=== PATIENT | male | born 1940 | race Caucasian/White ===

== ENCOUNTER 2017-09-23 08:43 | Emergency (ER) | payer MEDICARE, OTHER ==
[~2017-09-23] VITALS: Ht 172.7 cm; Wt 121.2 kg
[~2017-09-23 08:43] MED LIST: AMIO200T57 PO; ATOR40TA3 PO; Atorvastatin Calcium PO; BENA20TA10 PO; CELE-193 PO; CLOP75TA35 PO; FLO0.4C PO; METO50TA16 PO
[2017-09-23] MEDS ORDERED: oxyCODONE/APAP 10/325mg tablet PO ONE ×2 (09:05→09:55)
[2017-09-23 09:18] LABS: BASOPHILS % (AUTO) 0.2 % (0-1); EOSINOPHILS % (AUTO) 0.2 % (0-6); HEMATOCRIT 45.6 % (42.0-52.0); HEMOGLOBIN 15.2 g/dl (14.0-17.9); LYMPHOCYTES # (AUTO) 0.9 X10'3 (1.1-4.8); LYMPHOCYTES % (AUTO) 7.4 % (21-51); MEAN CORPUSCULAR HEMOGLOBIN 32.5 PG (27.0-31.0); MEAN CORPUSCULAR HGB CONC 33.3 % (33.0-36.5); MEAN CORPUSCULAR VOLUME 97.6 FL (78-98); MEAN PLATELET VOLUME 8.1 FL (7.4-10.4); MONOCYTES # (AUTO) 1.3 X10'3 (0-0.9); MONOCYTES % (AUTO) 10.8 % (2-12); NEUTROPHILS # (AUTO) 9.6 X10'3 (1.8-7.7); NEUTROPHILS % (AUTO) 81.4 % (42-75); PLATELET COUNT 398 X10'3 (140-440); RED BLOOD COUNT 4.67 X10'6 (4.70-6.10); RED CELL DISTRIBUTION WIDTH 13.6 % (11.5-14.5); WHITE BLOOD COUNT 11.8 X10'3 (4.5-11.0)
[2017-09-23 09:32] LABS: ALANINE AMINOTRANSFERASE 16 U/L (12-78); ALBUMIN 2.9 G/DL (3.4-5.0); ALBUMIN/GLOBULIN RATIO 0.6 (1.1-1.5); ALKALINE PHOSPHATASE 86 IU/L (46-116); ANION GAP 8 (8-16); ASPARTATE AMINO TRANSFERASE 18 U/L (10-37); BILIRUBIN,TOTAL 0.5 MG/DL (0.1-1.0); BLOOD UREA NITROGEN 17 MG/DL (7-18); BUN/CREATININE RATIO 12.1 (5.4-32.0); CALCIUM 9.4 MG/DL (8.5-10.1); CHLORIDE 98 MMOL/L (99-107); CREATININE 1.41 MG/DL (0.60-1.10); GLUCOSE 111 MG/DL (70-104); POTASSIUM 5.1 MMOL/L (3.5-5.1); SODIUM 135 MMOL/L (135-145); TOTAL CARBON DIOXIDE 29.3 MMOL/L (24-32); TOTAL PROTEIN 7.9 G/DL (6.4-8.2); eGFR 49 ML/MIN
[2017-09-23] MEDS ORDERED: OXYC-145 PO (11:05)
[2017-09-23 11:15] VITALS: BP 146/70
== END 2017-09-23 11:18 | disposition home or self-care (01) ==
LOC: ER 08:44
DX: I73.9 Peripheral vascular disease, unspecified (principal); I11.0 Hypertensive heart disease with heart failure; I50.9 Heart failure, unspecified; J44.9 Chronic obstructive pulmonary disease, unspecified; G89.29 Other chronic pain; Z79.899 Other long term (current) drug therapy; Z95.0 Presence of cardiac pacemaker
CPT/HCPCS: 36415; 71045; 80053; 83880; 85025; 93005; 93922; 93925; 93970; 99285

== ENCOUNTER 2017-09-25 09:27 | Emergency (ER) | payer MEDICARE, OTHER ==
[~2017-09-25] VITALS: Ht 172.7 cm; Wt 95.9 kg
[~2017-09-25 09:27] MED LIST changes: +OXYC-145 PO
[2017-09-25 09:40] VITALS: BP 161/91
[2017-09-25] MEDS ORDERED: OXYC-150 PO (11:38)
[2017-09-25] MEDS ORDERED: oxyCODONE/APAP 10/325mg tablet PO ONE (11:40)
== END 2017-09-25 12:01 | disposition home or self-care (01) ==
LOC: ER 09:27
DX: M79.605 Pain in left leg (principal); R20.0 Anesthesia of skin; I11.0 Hypertensive heart disease with heart failure; I50.9 Heart failure, unspecified; J44.9 Chronic obstructive pulmonary disease, unspecified; G89.29 Other chronic pain; Z76.0 Encounter for issue of repeat prescription; Z98.61 Coronary angioplasty status; Z95.0 Presence of cardiac pacemaker; Z79.899 Other long term (current) drug therapy
CPT/HCPCS: 99283

== ENCOUNTER 2018-01-05 12:40 | Emergency (ER) | payer MEDICARE, OTHER ==
[~2018-01-05] VITALS: Ht 172.7 cm; Wt 96.5 kg
[~2018-01-05 12:40] MED LIST changes: +AMIO200T40 PO; -AMIO200T57 PO; +OXYC-150 PO
[2018-01-05] MEDS ORDERED: ketorolac trometh. 30mg/ml inj. IM ONE (15:05)
[2018-01-05 15:18] VITALS: BP 149/49
== END 2018-01-05 15:21 | disposition home or self-care (01) ==
LOC: ER 12:41
DX: S46.912A Strain of unspecified muscle, fascia and tendon at shoulder and upper arm level, left arm, initial encounter (principal); S20.212A Contusion of left front wall of thorax, initial encounter; I11.0 Hypertensive heart disease with heart failure; I50.9 Heart failure, unspecified; J44.9 Chronic obstructive pulmonary disease, unspecified; G89.29 Other chronic pain; Z95.5 Presence of coronary angioplasty implant and graft; Z95.0 Presence of cardiac pacemaker; Z79.899 Other long term (current) drug therapy; W19.XXXA Unspecified fall, initial encounter; Y93.89 Activity, other specified; Y92.89 Other specified places as the place of occurrence of the external cause; Y99.9 Unspecified external cause status
CPT/HCPCS: 71100; 73060; 96372; 99284; J1885

== ENCOUNTER 2018-01-19 14:47 | Emergency (ER) | payer MEDICARE, OTHER ==
[~2018-01-19] VITALS: Ht 172.7 cm; Wt 100.0 kg
[2018-01-19 15:07] VITALS: BP 168/92
[2018-01-19] MEDS ORDERED: normal saline 1000ML IV soln IV ONE (15:10)
[2018-01-19] MEDS ORDERED: morphine 4 MG/ML inj SYRINge IV ONE (15:10)
[2018-01-19] MEDS ORDERED: TETanus/Pertussis (Acell)/Diphther VAC/PF (Tdap-Adult) 0.5ml syringe IM ONE (15:25)
[2018-01-19 15:27] LABS: BASOPHILS # (AUTO) 0.1 X10'3 (0-0.2); BASOPHILS % (AUTO) 0.4 % (0-1); EOSINOPHILS # (AUTO) 0.2 X10'3 (0-0.9); EOSINOPHILS % (AUTO) 1.1 % (0-6); HEMATOCRIT 46.8 % (42.0-52.0); HEMOGLOBIN 15.4 g/dl (14.0-17.9); LYMPHOCYTES # (AUTO) 1.9 X10'3 (1.1-4.8); LYMPHOCYTES % (AUTO) 14.1 % (21-51); MEAN CORPUSCULAR HEMOGLOBIN 31.7 PG (27.0-31.0); MEAN CORPUSCULAR HGB CONC 32.9 % (33.0-36.5); MEAN CORPUSCULAR VOLUME 96.2 FL (78-98); MEAN PLATELET VOLUME 8.7 FL (7.4-10.4); MONOCYTES # (AUTO) 1.2 X10'3 (0-0.9); NEUTROPHILS % (AUTO) 75.4 % (42-75); PLATELET COUNT 356 X10'3 (140-440); RED BLOOD COUNT 4.87 X10'6 (4.70-6.10); RED CELL DISTRIBUTION WIDTH 14.4 % (11.5-14.5); WHITE BLOOD COUNT 13.3 X10'3 (4.5-11.0)
[2018-01-19] MEDS ORDERED: fentaNYL/PF 50MCG/1 ML 2ML syringe IV ONE ×3 (15:35→17:40)
[2018-01-19 15:39] LABS: INR 0.9 INR; PROTHROMBIN TIME 9.8 SECONDS (9.0-12.0)
[2018-01-19 15:42] LABS: ALANINE AMINOTRANSFERASE 14 U/L (12-78); ALKALINE PHOSPHATASE 102 IU/L (46-116); ANION GAP 13 (8-16); ASPARTATE AMINO TRANSFERASE 15 U/L (10-37); BILIRUBIN,TOTAL 0.4 MG/DL (0.1-1.0); BLOOD UREA NITROGEN 24 MG/DL (7-18); BUN/CREATININE RATIO 15.9 (5.4-32.0); CHLORIDE 99 MMOL/L (99-107); CREATINE KINASE 98 U/L (39-308); CREATININE 1.51 MG/DL (0.60-1.10); GLUCOSE 106 MG/DL (70-104); POTASSIUM 4.4 MMOL/L (3.5-5.1); SODIUM 135 MMOL/L (135-145); TOTAL CARBON DIOXIDE 23.5 MMOL/L (24-32); eGFR 45 ML/MIN
[2018-01-19] MEDS ORDERED: LIDOcaine 2% 10ml TOPICAL JELLY (Urojet) MM ONE (15:50)
== END 2018-01-19 18:45 | disposition short-term general hospital (02) ==
LOC: ER 14:47
DX: T23.201A Burn of second degree of right hand, unspecified site, initial encounter (principal); T23.202A Burn of second degree of left hand, unspecified site, initial encounter; I25.10 Atherosclerotic heart disease of native coronary artery without angina pectoris; I13.0 Hypertensive heart and chronic kidney disease with heart failure and stage 1 through stage 4 chronic kidney disease, or unspecified chronic kidney disease; N18.9 Chronic kidney disease, unspecified; I50.9 Heart failure, unspecified; J44.9 Chronic obstructive pulmonary disease, unspecified; I25.2 Old myocardial infarction; G89.29 Other chronic pain; Z95.1 Presence of aortocoronary bypass graft; Z95.0 Presence of cardiac pacemaker; Z87.891 Personal history of nicotine dependence; Z79.899 Other long term (current) drug therapy; W86.8XXA Exposure to other electric current, initial encounter; Y93.89 Activity, other specified; Y92.89 Other specified places as the place of occurrence of the external cause; Y99.9 Unspecified external cause status
CPT/HCPCS: 36415; 71045; 80053; 82550; 83735; 84484; 85025; 85610; 90471; 90715; 93005; 96374; 96375; 96376; 99291; J2270; J3010

== ENCOUNTER 2018-06-03 07:19 | Observation (INO) | payer MEDICARE, OTHER ==
[2018-05-31 11:44] LABS: BASOPHILS % (AUTO) 0.6 % (0-1); EOSINOPHILS # (AUTO) 0.1 X10'3 (0-0.9); EOSINOPHILS % (AUTO) 1.7 % (0-6); LYMPHOCYTES # (AUTO) 1.9 X10'3 (1.1-4.8); LYMPHOCYTES % (AUTO) 22.7 % (21-51); MEAN CORPUSCULAR HEMOGLOBIN 32.6 PG (27.0-31.0); MEAN CORPUSCULAR HGB CONC 33.4 g/dL (33.0-36.5); MEAN CORPUSCULAR VOLUME 97.6 FL (78-98); MEAN PLATELET VOLUME 9.3 FL (7.4-10.4); MONOCYTES # (AUTO) 0.9 X10'3 (0-0.9); MONOCYTES % (AUTO) 11.4 % (2-12); NEUTROPHILS # (AUTO) 5.2 X10'3 (1.8-7.7); NEUTROPHILS % (AUTO) 63.6 % (42-75); PRE OP HEMATOCRIT 44.1 % (42.0-52.0); PRE OP HEMOGLOBIN 14.7 g/dL (14.0-17.9); PRE OP PLATELET COUNT 279 X10'3 (140-440); RED BLOOD COUNT 4.52 X10'6 (4.70-6.10); RED CELL DISTRIBUTION WIDTH 13.6 % (11.5-14.5)
[2018-05-31 11:49] LABS: CLARITY,URINE CLEAR (Clear); COLOR,URINE YELLOW (Yellow); GLUCOSE, URINE NEGATIVE (Neg); KETONES,URINE NEGATIVE (Neg); LEUKOCYTE ESTERASE ,URINE NEGATIVE (Neg); NITRITES, URINE NEGATIVE (Neg); OCCULT BLOOD,URINE NEGATIVE (Neg); PROTEIN,URINE NEGATIVE (Neg); UA COLLECTION TYPE CLN CATCH MIDSTREAM; UROBILINOGEN,URINE 0.2 E.U/dL (0.2-1.0)
[2018-05-31 12:10] LABS: ALBUMIN 3.5 G/DL (3.4-5.0); ALKALINE PHOSPHATASE 95 IU/L (46-116); BLOOD UREA NITROGEN 22 MG/DL (7-18); BUN/CREATININE RATIO 14.9 (5.4-32.0); CALCIUM 8.9 MG/DL (8.5-10.1); CHLORIDE 103 MMOL/L (99-107); CREATININE 1.48 MG/DL (0.60-1.10); PRE OP ALT 15 U/L (30-65); PRE OP ANION GAP 8 (8-16); PRE OP AST 15 U/L (10-37); PRE OP BILIRUB, TOTAL 0.3 MG/DL (0.0-1.0); PRE OP GLUCOSE 88 MG/DL (70-104); PRE OP POTASSIUM 4.2 MMOL/L (3.4-5.1); PRE OP SODIUM 139 MMOL/L (135-145); eGFR 46 ML/MIN
[2018-05-31 12:19] LABS: INR 0.9 INR; PRE OP PARTIAL THROMB. TIME 28 SECONDS (22-35); PROTHROMBIN TIME 9.6 SECONDS (9.0-12.0)
[2018-06-03] VITALS (17 sets, daily range): BP systolic 118–172; BP diastolic 48–77
[~2018-06-03] VITALS: Ht 172.7 cm; Wt 96.3 kg
[~2018-06-03 07:19] MED LIST changes: +AMIO100T4 PO; -AMIO200T40 PO; +ASPI81TA52 PO; +ATOR10TA87 PO; -ATOR40TA3 PO; -Atorvastatin Calcium PO; -BENA20TA10 PO; -CELE-193 PO; +CLOP75TA15 PO; -CLOP75TA35 PO; +DOCU-29 PO; +DOCUMENT DATE & TIME OF BETA-BLOCKER PO ONE; -METO50TA16 PO; +METO50TA17 PO; -OXYC-145 PO; -OXYC-150 PO; +PER10325T PO; +SENN-162 PO; +UMEC1DIS INH; +VANCOMYCIN INJ 1000 MG in NORMAL SALINE 250ml IV.SOLN IV ONE; +albuterol 2.5 MG/3 ML nebule NEB ONE; +cefazolin/dext.iso 2gm/50ml 50 ML IV ONE; +famotidine 20mg tablet PO ONE; +ringers solution, lacted 1,000 ML IV SCH
[2018-06-03] MEDS ORDERED: LIDOcaine 1% (10mg/ml) 2ml vial ONE (07:25)
[2018-06-03] MEDS ORDERED: ceFAZolin 1000mg inj ONE (09:42)
[2018-06-03] MEDS ORDERED: Thrombin (Bovine) 5,000 unit vial TP ONE (09:42)
[2018-06-03] MEDS ORDERED: gelatin sponge, absorbable (Gelfoam 100) sponge TP ONE (09:42)
[2018-06-03] MEDS ORDERED: heparin 10,000 units/1 ML INJ ONE (09:42)
[2018-06-03] MEDS ORDERED: sevoflurane 250ml liquid IH ONE (11:13)
[2018-06-03] MEDS ORDERED: ondansetron/PF 4mg/2ml inj ONE (11:13)
[2018-06-03] MEDS ORDERED: rocuronium 10mg/ml inj IV ONE (11:15)
[2018-06-03] MEDS ORDERED: MIDAZolam 5mg/5ml vial ONE (11:15)
[2018-06-03] MEDS ORDERED: propofol inj 20 ML IV ONE (11:15)
[2018-06-03] MEDS ORDERED: fentaNYL /PF 50mcg/ml 5ml ampule ONE ×2 (11:15→14:21)
[2018-06-03] MEDS ORDERED: naloxone 0.4 mg/ml inj IV PRN (11:40)
[2018-06-03] MEDS ORDERED: mag hydrox/Alum hydrox/simeth 30ml oral suspension PO PRN (11:40)
[2018-06-03] MEDS ORDERED: simethicone 125mg capsule PO PRN (11:40)
[2018-06-03] MEDS ORDERED: diphenhydrAMINE 50 mg/ml inj IV PRN (11:40)
[2018-06-03] MEDS ORDERED: bisacodyl 10mg suppository rectal RC PRN (11:40)
[2018-06-03] MEDS ORDERED: HYDROcodone/acetaminophen 10/325mg tab PO PRN ×2 (11:40)
[2018-06-03] MEDS ORDERED: temazepam 15mg capsule PO PRN (11:40)
[2018-06-03] MEDS ORDERED: acetaminophen 325mg tablet PO PRN (11:40)
[2018-06-03] MEDS ORDERED: ondansetron/PF 4mg/2ml inj IV PRN ×2 (11:40→12:15)
[2018-06-03] MEDS ORDERED: CADD PCA waste documentation MC PRN (11:40)
[2018-06-03] MEDS ORDERED: metoclopramide 5 mg/ml inj IV PRN (11:40)
[2018-06-03] MEDS ORDERED: magnesium hydroxide 30ml (MOM) UD suspension PO PRN (11:40)
[2018-06-03] MEDS ORDERED: ringers solution, lacted 1,000 ML IV SCH (12:11)
[2018-06-03] MEDS ORDERED: meperidine/PF 25mg/ml syringe IV PRN ×3 (12:15)
[2018-06-03] MEDS ORDERED: morphine 4 MG/ML inj SYRINge IV PRN ×2 (12:15)
[2018-06-03] MEDS ORDERED: proCHLORperazine 10 MG/2 ml inj IV PRN (12:15)
[2018-06-03] MEDS: HYDROmorphone/NS 1 mg/ml CADD 50 ML IV SCH ×6 (13:00→23:00)
[2018-06-03] MEDS ORDERED: BUPIVAcaine/PF 2.5mg/ml (0.25%) 10ml vial ONE (14:22)
[2018-06-03] MEDS ORDERED: epiNEPHrine 1 mg/ml inj ONE (14:22)
[2018-06-03] MEDS ORDERED: glycopyrrolate 0.2mg/ml inj ONE (15:06)
[2018-06-03] MEDS ORDERED: dexamethasone sod phosphate 4mg/ml inj. ONE (15:06)
[2018-06-03] MEDS ORDERED: neostigmine methylsulfate 1 MG/ML 10ml vial ONE (15:06)
--- NOTE | 2018-06-03 15:15 | NUR ---
Received from OR via BED, accompanied by Anesthesiologist DR THOMAS-- and report given by Anesthesiolgist. PATIENT A&OX4, DENIES PAIN, V/S WNL, NEUROVASCULAR CHECKS INTACT, 20G PIV LUE, SCD ON, F/C DRAINING CLEAR YELLOW URINE, DRESSING MIDLINE BACK W/ KATELYN CDI MINIMAL OUTPUT IN DRAIN. NO NEURO DEFICITS DISCOVERED DURING NEURO ASSESSMENT.
--- NOTE | 2018-06-03 16:15 | NUR ---
PATIENT A&OX4, DENIES PAIN, V/S WNL, NEUROVASCULAR CHECKS INTACT, 20G PIV LUE, SCD ON, F/C DRAINING CLEAR YELLOW URINE, DRESSING MIDLINE BACK W/ KATELYN CDI MINIMAL OUTPUT IN DRAIN. NO NEURO DEFICITS DISCOVERED DURING NEURO ASSESSMENT. TRANSFERED TO ORTHO WITH ALL BELONGINGS AND REPORT GIVEN TO SUPERVISOR SH[employer]PERATIONS WHO HAS TAKEN OVER PATIENT CARE
[2018-06-03] MEDS: normal saline 1000ml 1,000 ML IV SCH ×2 (17:14→21:39)
[2018-06-03] MEDS: ceFAZolin 1GM/D5W- ADD-VANTAGE 50 ML IV SCH ×2 (17:14→23:56)
--- NOTE | 2018-06-03 19:01 | NUR ---
Patient in room [facility]TH[facility] 4023. I have received report from CHITRA Caal and had the opportunity to ask questions and assume patient care.
[2018-06-03] MEDS: vancomycin/NS 1 GM ADD-VANTAGE 250 ML IV SCH (20:43)
[2018-06-03] MEDS: metoprolol tartrate 50mg tablet PO SCH (20:44)
[2018-06-03] MEDS: oxyCODONE/APAP 10/325mg tablet PO SCH (20:45)
[2018-06-03] MEDS ORDERED: sennosides 8.6mg tablet PO SCH (21:00)
[2018-06-03] MEDS ORDERED: docusate sod 100mg capsule PO SCH (21:00)
[2018-06-03] MEDS ORDERED: atorvastatin 10mg tablet PO SCH (21:00)
[2018-06-04] VITALS (9 sets, daily range): BP systolic 97–143; BP diastolic 43–68
[2018-06-04] MEDS: HYDROmorphone/NS 1 mg/ml CADD 50 ML IV SCH ×10 (01:00→18:55)
[2018-06-04] MEDS: normal saline 1000ml 1,000 ML IV SCH (06:08)
--- NOTE | 2018-06-04 06:36 | NUR ---
Problems reprioritized. Patient report given, questions answered & plan of care reviewed with CHITRA Caal.
[2018-06-04] MEDS ORDERED: tamsulosin 0.4mg capsule PO SCH (08:00)
[2018-06-04] MEDS ORDERED: ANORO ELLIPTA IH SCH (08:00)
[2018-06-04] MEDS ORDERED: clopidogrel 75mg tablet PO SCH (08:00)
[2018-06-04] MEDS ORDERED: aspirin 81mg tablet.DR PO SCH (08:00)
[2018-06-04] MEDS ORDERED: amiodarone 100mg tablet PO SCH (08:00)
[2018-06-04] MEDS ORDERED: non-formulary drug (Umeclidinium Brm/Vilanterol Tr (Anoro Ellipta 62.5-25 Mcg INH) 1 PUFF) INH SCH (08:00)
[2018-06-04] MEDS: vancomycin/NS 1 GM ADD-VANTAGE 250 ML IV SCH (08:41)
[2018-06-04] MEDS: oxyCODONE/APAP 10/325mg tablet PO SCH ×2 (08:42→13:00)
[2018-06-04] MEDS: metoprolol tartrate 50mg tablet PO SCH (08:43)
--- NOTE | 2018-06-04 13:30 | NUR ---
PT STATES THAT FAMILY WILL BRING IN HIS ANORO INHALER THIS AFTERNOON
--- NOTE | 2018-06-04 18:11 | NUR ---
Patient in room [facility]TH[facility] 4023. I have received report from CHITRA Caal and had the opportunity to ask questions and assume patient care.
--- NOTE | 2018-06-04 19:00 | NUR ---
KATELYN drain was d/c,pt. tolerated well.
--- NOTE | 2018-06-04 19:06 | NUR ---
Pt. discharge home with his son.Instruction was given to pt.
== END 2018-06-04 19:05 | disposition home or self-care (01) ==
LOC: PAS 07:19 → ORTHO 4S 11:39
PROVIDERS: ADMIT Orthopaedic Surgery Orthopaedic Surgery of the Spine; ATTEND Orthopaedic Surgery Orthopaedic Surgery of the Spine
DX: M48.062 Spinal stenosis, lumbar region with neurogenic claudication (principal); M51.36 Other intervertebral disc degeneration, lumbar region; M47.819 Spondylosis without myelopathy or radiculopathy, site unspecified; M54.5 Low back pain
CPT/HCPCS: 36415; 63047; 63048; 72020; 76000; 80053; 81003; 82948; 85025; 85610; 85730; 86885; 86900; 86901; 87070; 93005; 96365; 96366; 96367; 97116; 97161; 97530; A6402; G0378; J0171; J0690; J1100; J1170; J1644; J2250; J2405; J2704; J2710; J3010; J3370; J3490; J7030; J7120; A4344; A6196; A7000; C1758

== ENCOUNTER 2019-08-17 01:10 | Inpatient (IN) | payer MEDICARE, OTHER ==
[~2019-08-17] VITALS: Ht 172.7 cm; Wt 96.4 kg
[~2019-08-17 01:10] MED LIST changes: -DOCUMENT DATE & TIME OF BETA-BLOCKER PO ONE; -PER10325T PO; -SENN-162 PO; +SENN-263 PO; -VANCOMYCIN INJ 1000 MG in NORMAL SALINE 250ml IV.SOLN IV ONE; -albuterol 2.5 MG/3 ML nebule NEB ONE; -cefazolin/dext.iso 2gm/50ml 50 ML IV ONE; -famotidine 20mg tablet PO ONE; -ringers solution, lacted 1,000 ML IV SCH
[2019-08-17] MEDS ORDERED: ondansetron/PF 4mg/2ml inj IV ONE (01:50)
[2019-08-17] MEDS ORDERED: normal saline 1000ML IV soln IVB ONE (01:50)
[2019-08-17 01:54] LABS: BASOPHILS % (AUTO) 0.3 % (0-1); EOSINOPHILS # (AUTO) 0.1 X10'3 (0-0.9); EOSINOPHILS % (AUTO) 0.5 % (0-6); HEMATOCRIT 49.3 % (42.0-52.0); HEMOGLOBIN 16.5 g/dl (14.0-17.9); LYMPHOCYTES # (AUTO) 1.3 X10'3 (1.1-4.8); LYMPHOCYTES % (AUTO) 9.8 % (21-51); MEAN CORPUSCULAR HEMOGLOBIN 33.7 PG (27.0-31.0); MEAN CORPUSCULAR HGB CONC 33.4 g/dL (33.0-36.5); MEAN CORPUSCULAR VOLUME 100.8 FL (78-98); MEAN PLATELET VOLUME 8.9 FL (7.4-10.4); MONOCYTES # (AUTO) 1.2 X10'3 (0-0.9); MONOCYTES % (AUTO) 9.2 % (2-12); NEUTROPHILS # (AUTO) 10.5 X10'3 (1.8-7.7); NEUTROPHILS % (AUTO) 80.2 % (42-75); PLATELET COUNT 297 X10'3 (140-440); RED BLOOD COUNT 4.89 X10'6 (4.70-6.10); RED CELL DISTRIBUTION WIDTH 13.6 % (11.5-14.5); WHITE BLOOD COUNT 13.1 X10'3 (4.5-11.0)
[2019-08-17 01:55] LABS: CLARITY,URINE CLEAR (Clear); COLOR,URINE YELLOW (Yellow); GLUCOSE, URINE NEGATIVE (Neg); KETONES,URINE NEGATIVE (Neg); LEUKOCYTE ESTERASE ,URINE NEGATIVE (Neg); NITRITES, URINE NEGATIVE (Neg); OCCULT BLOOD,URINE TRACE-INTACT (Neg); PROTEIN,URINE 100 mg/dl (Neg); UROBILINOGEN,URINE 0.2 E.U/dL (0.2-1.0)
[2019-08-17 02:01] LABS: UA COLLECTION TYPE CLN CATCH MIDSTREAM
[2019-08-17 02:04] LABS: BACTERIA,URINE NONE SEEN /HPF (Neg); SQUAMOUS EPITHELIAL CELL,UR FEW /LPF (FEW); WBC,URINE 0-4 /HPF (0-4)
[2019-08-17 02:05] LABS: TRANSITIONAL EPI CELLS,URINE FEW /HPF
[2019-08-17 02:06] LABS: ALANINE AMINOTRANSFERASE 18 U/L (12-78); ALBUMIN 3.7 G/DL (3.4-5.0); ALKALINE PHOSPHATASE 108 IU/L (46-116); ANION GAP 10 (8-16); ASPARTATE AMINO TRANSFERASE 18 U/L (10-37); BILIRUBIN,TOTAL 0.4 MG/DL (0.1-1.0); BLOOD UREA NITROGEN 24 MG/DL (7-18); BUN/CREATININE RATIO 15.6 (5.4-32.0); CALCIUM 9.5 MG/DL (8.5-10.1); CHLORIDE 102 MMOL/L (99-107); CREATININE 1.54 MG/DL (0.60-1.10); GLUCOSE 127 MG/DL (70-104); LIPASE 84 U/L (73-393); POTASSIUM 4.5 MMOL/L (3.5-5.1); SODIUM 137 MMOL/L (135-145); TOTAL CARBON DIOXIDE 25.4 MMOL/L (24-32); TOTAL PROTEIN 7.4 G/DL (6.4-8.2); eGFR 44 ML/MIN
[2019-08-17] MEDS: morphine 4 MG/ML inj SYRINge IV PRN ×2 (02:13→04:02)
[2019-08-17] MEDS ORDERED: morphine 2 MG/ML inj. syringe IV PRN (03:25)
[2019-08-17] MEDS ORDERED: HYDROcodone/acetaminophen 10/325mg tab PO PRN (03:25)
[2019-08-17] MEDS ORDERED: ondansetron/PF 4mg/2ml inj IV PRN (03:25)
[2019-08-17] MEDS ORDERED: acetaminophen 325mg tablet PO PRN ×2 (03:25)
[2019-08-17] MEDS ORDERED: mag hydrox/Alum hydrox/simeth 30ml oral suspension PO PRN (03:25)
[2019-08-17] MEDS ORDERED: HYDROcodone/acetaminophen 5mg/325mg tablet PO PRN (03:25)
[2019-08-17] MEDS ORDERED: magnesium hydroxide 30ml (MOM) UD suspension PO PRN (03:25)
[2019-08-17] MEDS: dextrose 5%-1/2 normal saline 1,000 ML IV SCH ×3 (03:41→23:24)
[2019-08-17] MEDS ORDERED: DUTA0.5C40 PO (04:07)
--- NOTE | 2019-08-17 05:00 | NUR ---
received from ER with belongings; oriented to surroundings & reviewed hospital routine; call light in reach...
[2019-08-17 05:15] VITALS: BP 133/91
--- NOTE | 2019-08-17 06:30 | NUR ---
unable to complete routine hospital admission questions; CHITRA Girard aware to followup
--- NOTE | 2019-08-17 06:30 | NUR ---
Patient in room [facility] 345. I have received report from Pat RN and had the opportunity to ask questions and assume patient care.
[2019-08-17 08:00] VITALS: BP 86/43
[2019-08-17] MEDS ORDERED: clopidogrel 75mg tablet PO SCH (08:00)
[2019-08-17] MEDS: VILANTEROL IH SCH (08:00)
[2019-08-17] MEDS: UMECLIDINIUM IH SCH (08:00)
[2019-08-17] MEDS: aspirin 81mg tablet.DR PO SCH (08:00)
[2019-08-17 09:00] VITALS: BP 194/76
[2019-08-17] MEDS: morphine 2 MG/ML inj. syringe IV PRN ×3 (09:02→20:11)
[2019-08-17] MEDS: metoprolol tartrate 50mg tablet PO SCH ×2 (09:02→20:08)
[2019-08-17] MEDS: piperacillin/tazo 3.375gm/50ml 50 ML IV SCH ×2 (09:02→16:08)
[2019-08-17] MEDS: amiodarone 100mg tablet PO SCH (09:05)
[2019-08-17] MEDS: dutasteride 0.5 MG capsule PO SCH (09:07)
[2019-08-17 11:00] VITALS: BP 177/62
[2019-08-17 11:25] LABS: PRE OP PARTIAL THROMB. TIME 27 SECONDS (22-32)
--- NOTE | 2019-08-17 17:55 | NUR ---
Paged Dr. Acevedo regarding high BP PAGER ID: [phone] MESSAGE: Surgical flr Shaji RN ext [phone]. RE: Jason Wilder. Pt has high BP today. I gave him his morning dose of Lopressor 50mg. This afternoon still high 180/75, pulse of 60 Do you want medication for high BP. He will get Lopressor again tonight
[2019-08-17 17:56] VITALS: BP 180/75
[2019-08-17] MEDS: amLODIPine 5mg tablet PO SCH (18:31)
[2019-08-17 19:00] VITALS: BP 176/68
--- NOTE | 2019-08-17 19:00 | NUR ---
Patient in room [facility] 345. I have received report from ELLIOT BUENROSTRO and had the opportunity to ask questions and assume patient care.
[2019-08-17] MEDS: atorvastatin 10mg tablet PO SCH (20:08)
[2019-08-17] MEDS: docusate sod 100mg capsule PO SCH (20:09)
[2019-08-18] VITALS (15 sets, daily range): BP systolic 111–203; BP diastolic 56–84
[2019-08-18] MEDS: piperacillin/tazo 3.375gm/50ml 50 ML IV SCH ×3 (00:40→17:19)
[2019-08-18 05:17] LABS: BASOPHILS # (AUTO) 0.1 X10'3 (0-0.2); BASOPHILS % (AUTO) 0.5 % (0-1); EOSINOPHILS # (AUTO) 0.1 X10'3 (0-0.9); EOSINOPHILS % (AUTO) 0.6 % (0-6); HEMOGLOBIN 16.5 g/dl (14.0-17.9); LYMPHOCYTES # (AUTO) 1.2 X10'3 (1.1-4.8); LYMPHOCYTES % (AUTO) 10.4 % (21-51); MEAN CORPUSCULAR HEMOGLOBIN 34.2 PG (27.0-31.0); MEAN CORPUSCULAR HGB CONC 33.7 g/dL (33.0-36.5); MEAN CORPUSCULAR VOLUME 101.3 FL (78-98); MEAN PLATELET VOLUME 9.2 FL (7.4-10.4); MONOCYTES # (AUTO) 1.5 X10'3 (0-0.9); NEUTROPHILS # (AUTO) 8.7 X10'3 (1.8-7.7); NEUTROPHILS % (AUTO) 75.5 % (42-75); PLATELET COUNT 286 X10'3 (140-440); RED BLOOD COUNT 4.83 X10'6 (4.70-6.10); RED CELL DISTRIBUTION WIDTH 13.4 % (11.5-14.5); WHITE BLOOD COUNT 11.5 X10'3 (4.5-11.0)
[2019-08-18 05:31] LABS: ALANINE AMINOTRANSFERASE 74 U/L (12-78); ALBUMIN 3.4 G/DL (3.4-5.0); ALBUMIN/GLOBULIN RATIO 0.9 (1.1-1.5); ALKALINE PHOSPHATASE 115 IU/L (46-116); ANION GAP 6 (8-16); ASPARTATE AMINO TRANSFERASE 50 U/L (10-37); BILIRUBIN,TOTAL 0.9 MG/DL (0.1-1.0); BLOOD UREA NITROGEN 14 MG/DL (7-18); BUN/CREATININE RATIO 9.5 (5.4-32.0); CALCIUM 8.9 MG/DL (8.5-10.1); CHLORIDE 101 MMOL/L (99-107); CREATININE 1.47 MG/DL (0.60-1.10); GLUCOSE 118 MG/DL (70-104); POTASSIUM 4.2 MMOL/L (3.5-5.1); SODIUM 136 MMOL/L (135-145); TOTAL CARBON DIOXIDE 29.3 MMOL/L (24-32); TOTAL PROTEIN 7.4 G/DL (6.4-8.2); eGFR 46 ML/MIN
[2019-08-18] MEDS: dextrose 5%-1/2 normal saline 1,000 ML IV SCH ×2 (05:38→20:56)
--- NOTE | 2019-08-18 06:12 | NUR ---
Problems reprioritized. Patient report given, questions answered & plan of care reviewed with CLIVE BUENROSTRO.
--- NOTE | 2019-08-18 06:30 | NUR ---
Patient in room [facility] 345. I have received report from Jing BUENROSTRO and had the opportunity to ask questions and assume patient care.
[2019-08-18] MEDS: aspirin 81mg tablet.DR PO SCH (06:42)
[2019-08-18] MEDS: amLODIPine 5mg tablet PO SCH (06:54)
[2019-08-18] MEDS: amiodarone 100mg tablet PO SCH (06:54)
[2019-08-18] MEDS: metoprolol tartrate 50mg tablet PO SCH ×2 (06:54→20:07)
[2019-08-18] MEDS: UMECLIDINIUM IH SCH (08:45)
[2019-08-18] MEDS: dutasteride 0.5 MG capsule PO SCH (08:45)
[2019-08-18] MEDS: VILANTEROL IH SCH (08:45)
[2019-08-18] MEDS: morphine 2 MG/ML inj. syringe IV PRN (10:27)
[2019-08-18] MEDS ORDERED: morphine 2 MG/ML inj. syringe IV ONE (11:25)
[2019-08-18] MEDS ORDERED: morphine 2 MG/ML inj. syringe IV PRN (11:25)
[2019-08-18] MEDS ORDERED: MIDAZolam 5mg/5ml vial ONE (12:07)
[2019-08-18] MEDS ORDERED: fentaNYL/PF 50MCG/1 ML 2ML syringe ONE (12:07)
[2019-08-18] MEDS ORDERED: iohexol 300 MG/1 ML 50ml polymer ONE (12:10)
[2019-08-18] MEDS ORDERED: glucagon, human recombinant 1mg kit ONE ×2 (12:10)
[2019-08-18] MEDS ORDERED: diphenhydrAMINE 50 mg/ml inj ONE (12:10)
[2019-08-18] MEDS ORDERED: LIDOcaine Viscous 15ml cup ONE (12:10)
--- NOTE | 2019-08-18 16:52 | NUR ---
PAGER ID: [phone] MESSAGE: RE [id number] Jason Wilder. ERCP done, large stones removed. Diet changed to clear liq, do you still want IV fluids? BP elevated 180/63. CLIVE [id number]
[2019-08-18] MEDS ORDERED: hydrALAZINE 20mg/ml inj. IV PRN (16:55)
--- NOTE | 2019-08-18 18:08 | NUR ---
Problems reprioritized. Patient report given, questions answered & plan of care reviewed with Reyna BUENROSTRO.
--- NOTE | 2019-08-18 18:46 | NUR ---
Patient in room [facility] 345. I have received report from CHITRA De La Torre and had the opportunity to ask questions and assume patient care. Addendum: 08/18/19 at 1846 by Christine Gan RN Amended: Links added.
[2019-08-18] MEDS: lactobacillus rhamnosus 10,000 MMU CELLS/CAPSULE PO SCH (19:59)
[2019-08-18] MEDS: docusate sod 100mg capsule PO SCH (20:56)
[2019-08-18] MEDS: atorvastatin 10mg tablet PO SCH (20:56)
[2019-08-19] VITALS: BP 155/63
[2019-08-19] MEDS: piperacillin/tazo 3.375gm/50ml 50 ML IV SCH ×2 (00:10→07:31)
[2019-08-19 05:19] LABS: BASOPHILS % (AUTO) 0.2 % (0-1); EOSINOPHILS % (AUTO) 0.1 % (0-6); HEMATOCRIT 46.9 % (42.0-52.0); HEMOGLOBIN 15.5 g/dl (14.0-17.9); LYMPHOCYTES # (AUTO) 0.9 X10'3 (1.1-4.8); LYMPHOCYTES % (AUTO) 6.3 % (21-51); MEAN CORPUSCULAR HEMOGLOBIN 33.1 PG (27.0-31.0); MEAN CORPUSCULAR HGB CONC 33.1 g/dL (33.0-36.5); MEAN CORPUSCULAR VOLUME 99.9 FL (78-98); MEAN PLATELET VOLUME 9.2 FL (7.4-10.4); MONOCYTES # (AUTO) 2.2 X10'3 (0-0.9); MONOCYTES % (AUTO) 16.4 % (2-12); NEUTROPHILS # (AUTO) 10.5 X10'3 (1.8-7.7); PLATELET COUNT 279 X10'3 (140-440); RED CELL DISTRIBUTION WIDTH 13.3 % (11.5-14.5); WHITE BLOOD COUNT 13.7 X10'3 (4.5-11.0)
[2019-08-19] MEDS: dextrose 5%-1/2 normal saline 1,000 ML IV SCH ×2 (05:24→07:49)
[2019-08-19 05:35] LABS: ALANINE AMINOTRANSFERASE 48 U/L (12-78); ALBUMIN 2.9 G/DL (3.4-5.0); ALBUMIN/GLOBULIN RATIO 0.8 (1.1-1.5); ALKALINE PHOSPHATASE 91 IU/L (46-116); ANION GAP 7 (8-16); ASPARTATE AMINO TRANSFERASE 27 U/L (10-37); BILIRUBIN,TOTAL 0.9 MG/DL (0.1-1.0); BLOOD UREA NITROGEN 17 MG/DL (7-18); BUN/CREATININE RATIO 10.8 (5.4-32.0); CALCIUM 8.4 MG/DL (8.5-10.1); CHLORIDE 102 MMOL/L (99-107); CREATININE 1.57 MG/DL (0.60-1.10); GLUCOSE 117 MG/DL (70-104); POTASSIUM 3.6 MMOL/L (3.5-5.1); SODIUM 135 MMOL/L (135-145); TOTAL CARBON DIOXIDE 25.9 MMOL/L (24-32); TOTAL PROTEIN 6.7 G/DL (6.4-8.2); eGFR 43 ML/MIN
[2019-08-19 06:13] LABS: PLATELET ESTIMATE NORMAL; TOTAL CELLS COUNTED 100
--- NOTE | 2019-08-19 06:30 | NUR ---
Problems reprioritized. Patient report given, questions answered & plan of care reviewed with CHITRA Venegas.
--- NOTE | 2019-08-19 06:30 | NUR ---
Patient in room [facility] 345. I have received report from Batool Orellana RN and had the opportunity to ask questions and assume patient care.
[2019-08-19 07:18] VITALS: BP 154/62
[2019-08-19] MEDS: metoprolol tartrate 50mg tablet PO SCH (07:29)
[2019-08-19] MEDS: amLODIPine 5mg tablet PO SCH (07:30)
[2019-08-19] MEDS: aspirin 81mg tablet.DR PO SCH (07:30)
[2019-08-19] MEDS: lactobacillus rhamnosus 10,000 MMU CELLS/CAPSULE PO SCH (07:30)
[2019-08-19] MEDS: amiodarone 100mg tablet PO SCH (07:30)
[2019-08-19] MEDS: VILANTEROL IH SCH (07:31)
[2019-08-19] MEDS: UMECLIDINIUM IH SCH (07:31)
[2019-08-19] MEDS: dutasteride 0.5 MG capsule PO SCH (07:51)
[2019-08-19] MEDS ORDERED: morphine 4 MG/ML inj SYRINge IV PRN (08:27)
[2019-08-19] MEDS ORDERED: loperamide 2mg capsule PO PRN (11:05)
[2019-08-19] MEDS ORDERED: NOR5T PO (11:40)
[2019-08-19 12:00] VITALS: BP 127/55
--- NOTE | 2019-08-19 13:28 | NUR ---
Pt has D/C orders per Dr Acevedo. Pt c/o having loose stools x4 this morning denies Abd pain, no fever noted. New antidiarrheic med administrated with good results.
--- NOTE | 2019-08-19 13:35 | NUR ---
IV and Tele removed. Pt was escorted to main lobby on W/C. Left the hospital via private vehicle accompanied by friend.
[2019-08-22] MEDS ORDERED: HYDR-4353 PO (10:21)
[2019-08-22] MEDS ORDERED: CLOP75TA35 PO (10:21)
== END 2019-08-19 13:46 | disposition home or self-care (01) | DRG 445 ==
LOC: ER 01:11 → ED HOLD 03:50 → SUR 3N 05:02
PROVIDERS: ADMIT Internal Medicine; ATTEND Family Medicine
PROC: 0FC98ZZ Extirpation of Matter from Common Bile Duct, Via Natural or Artificial Opening Endoscopic (ICD-10-PCS; principal; 2019-08-18)
DX: K80.70 Calculus of gallbladder and bile duct without cholecystitis without obstruction (principal); N17.9 Acute kidney failure, unspecified; I13.0 Hypertensive heart and chronic kidney disease with heart failure and stage 1 through stage 4 chronic kidney disease, or unspecified chronic kidney disease; E78.00 Pure hypercholesterolemia, unspecified; E78.5 Hyperlipidemia, unspecified; I25.10 Atherosclerotic heart disease of native coronary artery without angina pectoris; I48.0 Paroxysmal atrial fibrillation; N18.9 Chronic kidney disease, unspecified; I50.9 Heart failure, unspecified; I73.9 Peripheral vascular disease, unspecified; J44.9 Chronic obstructive pulmonary disease, unspecified; G89.29 Other chronic pain; M54.9 Dorsalgia, unspecified; K82.8 Other specified diseases of gallbladder; N40.0 Benign prostatic hyperplasia without lower urinary tract symptoms; Z87.891 Personal history of nicotine dependence; I25.2 Old myocardial infarction; Z95.810 Presence of automatic (implantable) cardiac defibrillator; Z79.899 Other long term (current) drug therapy; Z79.82 Long term (current) use of aspirin; Z86.79 Personal history of other diseases of the circulatory system
CPT/HCPCS: 36415; 43245; 43262; 43264; 71045; 74176; 76700; 80053; 81001; 83690; 83880; 85025; 85610; 85730; 87081; 93005; 96361; 96374; 99152; 99153; 99285; A4620; C1726; C1769; G0378; J0360; J1200; J1610; J2250; J2270; J2405; J2543; J3010; J7030; J7040; Q9967

== ENCOUNTER 2019-08-30 11:20 | Inpatient (IN) | payer MEDICARE, OTHER ==
[2019-08-22 10:41] LABS: BASOPHILS # (AUTO) 0.1 X10'3 (0-0.2); BASOPHILS % (AUTO) 0.6 % (0-1); EOSINOPHILS # (AUTO) 0.1 X10'3 (0-0.9); EOSINOPHILS % (AUTO) 1.2 % (0-6); LYMPHOCYTES # (AUTO) 1.3 X10'3 (1.1-4.8); LYMPHOCYTES % (AUTO) 14.1 % (21-51); MEAN CORPUSCULAR HEMOGLOBIN 33.7 PG (27.0-31.0); MEAN CORPUSCULAR HGB CONC 33.7 g/dL (33.0-36.5); MEAN CORPUSCULAR VOLUME 100.2 FL (78-98); MEAN PLATELET VOLUME 8.7 FL (7.4-10.4); MONOCYTES # (AUTO) 1.2 X10'3 (0-0.9); MONOCYTES % (AUTO) 13.7 % (2-12); NEUTROPHILS # (AUTO) 6.3 X10'3 (1.8-7.7); NEUTROPHILS % (AUTO) 70.4 % (42-75); PRE OP HEMATOCRIT 46.3 % (42.0-52.0); PRE OP HEMOGLOBIN 15.6 g/dL (14.0-17.9); PRE OP PLATELET COUNT 334 X10'3 (140-440); RED BLOOD COUNT 4.62 X10'6 (4.70-6.10); RED CELL DISTRIBUTION WIDTH 13.2 % (11.5-14.5)
[2019-08-22 10:55] LABS: ALBUMIN 3.2 G/DL (3.4-5.0); ALBUMIN/GLOBULIN RATIO 0.8 (1.1-1.5); ALKALINE PHOSPHATASE 109 IU/L (46-116); BLOOD UREA NITROGEN 21 MG/DL (7-18); BUN/CREATININE RATIO 12.4 (5.4-32.0); CALCIUM 9.1 MG/DL (8.5-10.1); CHLORIDE 105 MMOL/L (99-107); PRE OP ALT 38 U/L (30-65); PRE OP ANION GAP 7 (8-16); PRE OP AST 18 U/L (10-37); PRE OP BILIRUB, TOTAL 0.5 MG/DL (0.0-1.0); PRE OP GLUCOSE 92 MG/DL (70-104); PRE OP POTASSIUM 4.5 MMOL/L (3.4-5.1); PRE OP SODIUM 138 MMOL/L (135-145); TOTAL CARBON DIOXIDE 25.9 MMOL/L (24-32); TOTAL PROTEIN 7.4 G/DL (6.4-8.2); eGFR 39 ML/MIN
[2019-08-22 11:31] LABS: CLARITY,URINE CLEAR (Clear); COLOR,URINE YELLOW (Yellow); GLUCOSE, URINE NEGATIVE (Neg); KETONES,URINE NEGATIVE (Neg); LEUKOCYTE ESTERASE ,URINE NEGATIVE (Neg); NITRITES, URINE NEGATIVE (Neg); OCCULT BLOOD,URINE NEGATIVE (Neg); PH,URINE 5.5 (4.8-8.0); PROTEIN,URINE TRACE mg/dl (Neg); UROBILINOGEN,URINE 0.2 E.U/dL (0.2-1.0)
[2019-08-22 11:33] LABS: UA COLLECTION TYPE CLN CATCH MIDSTREAM
[2019-08-22 11:43] LABS: BACTERIA,URINE NONE SEEN /HPF (Neg); HYALINE CASTS 0-3 /LPF (NEGATIVE); MUCUS STRANDS FEW /LPF (Neg); RBC,URINE NONE SEEN /HPF (0-2); SQUAMOUS EPITHELIAL CELL,UR FEW /LPF (FEW); TRANSITIONAL EPI CELLS,URINE FEW /HPF; WBC,URINE 0-4 /HPF (0-4)
[2019-08-30] VITALS (31 sets, daily range): BP systolic 141–186; BP diastolic 49–119
[~2019-08-30] VITALS: Ht 172.7 cm; Wt 95.8 kg
[~2019-08-30 11:20] MED LIST changes: -CLOP75TA15 PO; +CLOP75TA35 PO; +DOCUMENT DATE & TIME OF BETA-BLOCKER PO ONE; +DUTA0.5C40 PO; -FLO0.4C PO; +HYDR-4353 PO; +NOR5T PO; -SENN-263 PO; +ceFOXitin sod/dextrose 2g/50ml 50 ML IV ONE; +famotidine 20mg tablet PO ONE; +ringers solution, lacted 1,000 ML IV SCH
[2019-08-30] MEDS ORDERED: ceFAZolin 1000mg inj ONE (12:58)
[2019-08-30] MEDS ORDERED: BUPIVAcaine/PF 2.5 mg/ml (0.25%) 30ml vial ONE (12:58)
[2019-08-30] MEDS ORDERED: rocuronium 10mg/ml inj IV ONE (13:46)
[2019-08-30] MEDS ORDERED: midazolam 2 mg/2 ml injection ONE (13:46)
[2019-08-30] MEDS ORDERED: propofol inj 20 ML IV ONE (13:46)
[2019-08-30] MEDS ORDERED: fentaNYL/PF 50MCG/1 ML 2ML syringe ONE (13:46)
[2019-08-30] MEDS ORDERED: sevoflurane 250ml liquid IH ONE (13:47)
[2019-08-30] MEDS ORDERED: ringers solution, lacted 1,000 ML IV SCH (14:18)
[2019-08-30] MEDS ORDERED: proCHLORperazine 10 MG/2 ml inj IV PRN (14:20)
[2019-08-30] MEDS ORDERED: ondansetron/PF 4mg/2ml inj IV PRN ×2 (14:20→18:20)
[2019-08-30] MEDS ORDERED: meperidine/PF 25mg/ml syringe IV PRN ×2 (14:20)
[2019-08-30] MEDS ORDERED: morphine 2 MG/ML inj. syringe IV PRN (14:20)
[2019-08-30] MEDS ORDERED: glycopyrrolate 0.2mg/ml inj ONE (14:37)
[2019-08-30] MEDS ORDERED: neostigmine methylsulfate 1 MG/ML 10ml vial ONE (14:37)
--- NOTE | 2019-08-30 14:52 | NUR ---
Received from OR via MINNIE, accompanied by Anesthesiologist MAJO and report given by Anesthesiolgist. PT DROWSY, OXYGENATING WELL ON 10 LPM O2 VIA MASK, NO RESP DISTRESS. PT DENIES NAUSEA, C/O SEVERE INCISIONAL PAIN. MEDICATED PRN, SEE EMAR. LG BANDAIDS TO ABD TROCAR SITES, CDI. VSS.
[2019-08-30] MEDS: meperidine/PF 25mg/ml syringe IV PRN ×3 (15:00→15:29)
[2019-08-30] MEDS: morphine 4 MG/ML inj SYRINge IV PRN ×3 (15:03→17:59)
[2019-08-30] MEDS ORDERED: albuterol 2.5 MG/3 ML nebule NEB ONE (15:25)
[2019-08-30] MEDS ORDERED: acetaminophen 1,000mg/100ml IV 100 ML IV ONE (15:25)
[2019-08-30] MEDS ORDERED: HYDROcodone/acetaminophen 10/325mg tab PO ONE (16:10)
--- NOTE | 2019-08-30 16:35 | NUR ---
PT RECD A BREATHING TX AND IV TYLENOL. TOLERATING PO FLUIDS AND BITES OF APPLESAUCE GIVEN WITH PAIN PILL. AMBULATED TO BR WITH SBA, VOIDED LARGE AMOUNT OF YELLOW URINE. PAIN LEVEL SLOWLY TRENDING DOWN, PT RESTING MORE COMFORTABLY.
[2019-08-30] MEDS ORDERED: Potassium Cl inj 20 MEQ in ringers solution, lacted 1,000 ML IV SCH (18:16)
[2019-08-30] MEDS ORDERED: CADD PCA waste documentation MC PRN (18:20)
[2019-08-30] MEDS ORDERED: naloxone 0.4 mg/ml inj IV PRN (18:20)
[2019-08-30] MEDS ORDERED: HYDROmorphone inj. 0.5 MG/0.5 ML DISP.SYRIN IV ONE (18:45)
[2019-08-30] MEDS ORDERED: HYDROcodone/acetaminophen 10/325mg tab PO PRN (19:10)
--- NOTE | 2019-08-30 19:30 | NUR ---
Patient in room [facility] 347. I have received report from Nakia BUENROSTRO and had the opportunity to ask questions and assume patient care.
[2019-08-30] MEDS: HYDROmorphone/NS 1 mg/ml CADD 50 ML IV SCH ×3 (19:40→23:00)
--- NOTE | 2019-08-30 19:45 | NUR ---
Report called to receiving nurse. Transferred IN STABLE CONDITION via BED 2 BAGS OF Belongings SENT W/PT TO ROOM 347B, PAIN IMPROVING W/DILAUDID, RECEIVING RN NOTIFIED OF PTS ARRIVAL. Special Issues communicated to receiving nurse. YES. Addendum: 08/30/19 at 1950 by Nakia Rocha RN Amended: Links added.
[2019-08-30] MEDS ORDERED: docusate sod 100mg capsule PO SCH (21:00)
[2019-08-30] MEDS ORDERED: atorvastatin 10mg tablet PO SCH (21:00)
[2019-08-30] MEDS: metoprolol tartrate 50mg tablet PO SCH (21:40)
[2019-08-31] VITALS: BP 148/69
[2019-08-31] MEDS: HYDROmorphone/NS 1 mg/ml CADD 50 ML IV SCH ×6 (01:00→11:00)
[2019-08-31] MEDS ORDERED: Potassium Cl inj 20 MEQ in ringers solution, lacted 1,000 ML IV SCH (02:05)
--- NOTE | 2019-08-31 05:04 | NUR ---
pt refusing scd's, rom moves legs well and oob manuelq Addendum: 08/31/19 at 0505 by Sandra Ames RN Amended: Links added.
--- NOTE | 2019-08-31 05:27 | NUR ---
agree with nursing assessment Addendum: 08/31/19 at 0528 by Sandra Ames RN Amended: Links added.
--- NOTE | 2019-08-31 06:31 | NUR ---
Problems reprioritized. Patient report given, questions answered & plan of care reviewed with Irlanda RN.
[2019-08-31 08:00] VITALS: BP 144/85
[2019-08-31] MEDS ORDERED: Umeclidinium Brm/Vilanterol Tr (Anoro Ellipta 62.5-25 Mcg INH) IH SCH (08:00)
[2019-08-31] MEDS ORDERED: amiodarone 100mg tablet PO SCH (08:00)
[2019-08-31] MEDS ORDERED: amLODIPine 5mg tablet PO SCH (08:00)
[2019-08-31] MEDS ORDERED: clopidogrel 75mg tablet PO SCH (08:00)
[2019-08-31] MEDS ORDERED: aspirin 81mg tablet.DR PO SCH (08:00)
[2019-08-31] MEDS ORDERED: dutasteride 0.5 MG capsule PO SCH (08:00)
[2019-08-31] MEDS: metoprolol tartrate 50mg tablet PO SCH (08:32)
[2019-08-31 12:00] VITALS: BP 179/67
[2019-08-31 13:30] VITALS: BP 168/68
--- NOTE | 2019-09-04 16:14 | NUR ---
Case Management DC follow up: LM/VM re post DC follow up, questions, concerns
== END 2019-08-31 14:40 | disposition home or self-care (01) | DRG 419 ==
LOC: PAS 11:20 → SUR 3N 18:16
PROVIDERS: ADMIT Surgery; ATTEND Surgery
PROC: 0FT44ZZ Resection of Gallbladder, Percutaneous Endoscopic Approach (ICD-10-PCS; principal; 2019-08-31)
DX: K80.60 Calculus of gallbladder and bile duct with cholecystitis, unspecified, without obstruction (principal); I12.9 Hypertensive chronic kidney disease with stage 1 through stage 4 chronic kidney disease, or unspecified chronic kidney disease; N18.3 Chronic kidney disease, stage 3 (moderate); I48.0 Paroxysmal atrial fibrillation; I73.9 Peripheral vascular disease, unspecified; J44.9 Chronic obstructive pulmonary disease, unspecified; N40.0 Benign prostatic hyperplasia without lower urinary tract symptoms; Z83.3 Family history of diabetes mellitus; Z87.891 Personal history of nicotine dependence; Z82.49 Family history of ischemic heart disease and other diseases of the circulatory system
CPT/HCPCS: 36415; 80053; 81001; 82948; 85025; 87081; 88304; 94640; 94760; A4215; A4618; A7000; G0378; J0131; J0690; J0694; J1170; J2175; J2250; J2270; J2704; J2710; J3010; J3490; J7120